=== PATIENT | female | born 1990 | race Caucasian/White ===

== ENCOUNTER 2017-02-09 15:54 | Emergency (ER) | payer OTHER ==
[~2017-02-09] VITALS: Ht 170.2 cm; Wt 81.8 kg
[2017-02-09 16:02] VITALS: BP 124/86; PULSE 90; RESP 21; O2SAT 90
[2017-02-09] MEDS ORDERED: Albuterol 2.5 mg/3 mL Inhalation Solution NEB ONE (16:05)
[2017-02-09] MEDS ORDERED: Albuterol-Ipratropium 3 mL Inhalation Solution NEB ONE (16:05)
[2017-02-09 16:13] VITALS: PULSE 94; RESP 20; O2SAT 92
--- NOTE | 2017-02-09 16:18 | ED.REPORT ---
HPI-Dyspnea / Wheezing Date of Service February 09, 2017 ED Provider: Dr. Elton Park MD Patient is a 24 year old female with a history of asthma, environmental allergies and PCOS who presents to the ED complaining of SOB that began 4 days ago. Associated symptoms include "watery" eyes and nasal congestion. She has also been experiencing diarrhea for the past 10 days that has since resolved. Patient has been seen by her PCP but her symptoms have persisted. She was prescribed prednisone but was unable to fill the prescription yesterday. Patient has had several previous admission for asthma attacks but denies any intubations. She has been using her nebulizer 2 times per day for the past few months and also uses an albuterol inhaler daily. She denies fever. Patient is a former smoker. Last menstrual periods was 4 days ago. Nursing Notes Stated Complaint: ASTHMA ATTACK Chief Complaint: Respiratory Distress Nursing Notes Reviewed: Yes Allergies: Coded Allergies: Sulfa (Sulfonamide Antibiotics) (Verified Allergy, Unknown, 06/10/15) Uncoded Allergies: SULFA (Allergy, Unknown, 06/10/15) General Time Seen by MD: 16:17 Chief Complaint Shortness of breath Hx Obtained From: Patient Arrived By: Walk-in Sudden in Onset?: No Onset Occurred: 4 days ago Symptom Duration: Since onset Location: : None Associated with: Reports: Nasal congestion, Denies: Fever Pertinent Negative: Pt denies other symptoms Recent Healthcare: No recent hospitalization, Recent doctor visit Past Medical History Past Medical History Notes: PCP: Dr. Vidhi Johnson MD Past Medical History 1. Asthma - Prior admission/No previous intubations 2. Environmental Allergies 3. PCOS Past Surgical History None reported Family History noncontributory Smoking History Former Smoker Social History Other Social History: Good social support, Local resident Ambulatory Status Independent Review of Systems Constitutional: Denies: Chills, Fever Ears / Nose / Throat: Reports: Nasal congestion Respiratory: Reports: Shortness of breath Complete sys rev & neg: except as marked. Eyes: Reports: Discharge bilateral ("watery eyes" ) GI: Reports: Diarrhea Physical Exam Initial Vital Signs Vital Signs (First) Date Time Temp Pulse Resp B/P Pulse Ox O2 Delivery O2 Flow Rate FiO2 02/09/17 16:02 37.1 90 21 124/86 90 Nasal Cannula 4 Initial VS: Reviewed Head / Eyes: Atraumatic, Normocephalic, PERRL Extremities: Vascular intact, Neuro intact, No swelling, No tenderness Skin: Warm, Dry, No cyanosis Neurologic: Alert, Oriented, Nonfocal Psychiatric: Mood/affect normal, Behavior normal, Normal thought content General/Constitutional: Awake, Alert, No acute distress Neck: Atraumatic, Supple, Full range of motion Respiratory / Chest: Atraumatic, No respiratory distress Wheezing / Retractions: Positive: Wheezing moderate (Coarse wheezes throughout) Cardiovascular: Heart rate NL, Regular rhythm, Heart sounds NL, No gallop, No murmurs, No rubs Abdomen: Atraumatic, Soft Interpretation & Diagnostics Lab Results Interpretation Result Diagram: 02/09/17 1648 02/09/17 1648 Test 02/09/17 16:48 02/09/17 17:07 White Blood Count 7.9th/mm3 (3.8-10.1) Red Blood Count 5.38mil/mm3 (3.90-5.20) Hemoglobin 16.1g/dL (12.0-15.6) Hematocrit 47.5% (35.0-46.0) Mean Corpuscular Volume 88.3fL (81-100) Mean Corpuscular Hemoglobin 29.9pg (27.0-35.0) Mean Corpuscular Hemoglobin Concent 33.9% (32.0-37.0) Red Cell Distribution Width 12.7% (12.3-15.4) Platelet Count 191bil/L (150-400) Neutrophils (%) (Auto) 67.4% (40-74) Lymphocytes (%) (Auto) 18.9% (14-46) Monocytes (%) (Auto) 5.2% (4-12) Eosinophils (%) (Auto) 7.7% (0-5) Basophils (%) (Auto) 0.5% (0-3) Sodium Level 138mEq/L (134-144) Potassium Level 3.6mEq/L (3.5-5.2) Chloride Level 102mEq/L (97-108) Carbon Dioxide Level 20mmol/L (18-29) Blood Urea Nitrogen 12mg/dL (6-20) Creatinine 0.81mg/dL (0.57-1.00) Estimat Glomerular Filtration Rate 121mL/min (>59) Glucose Level 116mg/dL (60-99) Calcium Level 9.4mg/dL (8.5-10.1) Total Bilirubin 0.4mg/dL (0.0-1.2) Aspartate Amino Transf (AST/SGOT) 15U/L (0-50) Alanine Aminotransferase (ALT/SGPT) 12U/L (0-32) Alkaline Phosphatase 101U/L (25-150) Troponin T < 0.010ug/L (0.0-0.011) Pro-B-Type Natriuretic Peptide 19.50pg/mL (0-130) Total Protein 7.5g/dL (6.4-8.4) Albumin 3.8g/dL (3.4-5.0) Hold Maier Top Tube Received (Received) Urine Color Yellow (YELLOW) Urine Appearance Clear (CLEAR,HAZY) Urine pH 5.5 (5.0-8.0) Urine Specific [place] 1.030 (1.003-1.035) Urine Protein Tracemg/dL (NEG,TRACE) Urine Glucose (UA) Negativemg/dL (NEGATIVE) Urine Ketones Tracemg/dL (NEGATIVE) Urine Occult Blood Trace (NEGATIVE) Urine Nitrite Negative (NEGATIVE) Urine Bilirubin Negative (NEGATIVE) Urine Urobilinogen 1.0mg/dL (NORMAL) Urine Leukocyte Esterase Negative (NEGATIVE) Urine RBC 0-2/hpf (0-2) Urine WBC 0-5/hpf (0-5) Urine Epithelial Cells None/hpf (NONE-MOD) Urine Crystals None seen (NONE SEEN) Urine Bacteria Few/hpf (NONE-FEW) Urine Hyaline Casts None/lpf (NONE) Urine Granular Casts None seen (NONE SEEN) Urine Waxy Casts None seen (NONE SEEN) Urine Red Blood Cell Casts None seen (NONE SEEN) Urine White Blood Cell Casts None seen (NONE SEEN) Urine Mucus None seen (None Seen) Urine Trichomonas None seen (NONE SEEN) Urine Yeast None (NONE SEEN) Urinalysis Comment None Urine Culture Reflexed Not indicated ECG Interpretation ECG Interpretation: Sinus Rhythm Rate [address] changes Time: 16:37 Interpreted by: ED physician Abnormal T wave or ST segment: Non-specific ST changes X-Ray Chest Interpretation Chest Xray Interpretation: IMPRESSION: No acute pulmonary process. Dictated by: Deyanira Zelaya M.D. on 02/09/2017 at 16:43 Interpretation / Wet Read by: Interpret - Radiologist Re-Eval/Medical Decision Re-Evaluation/Progress : Time of Eval: 19:46 Treatment Summary: Albuterol nebulizer x 2 Patient Status: Condition improved Re-Evaluation/Progress Note: Wheezes still present but symptoms have All of the patient's questions about her diagnosis and treatment plan are addressed. She understands and agrees with the treatment plan. Counseled Regarding: Diagnosis, Lab results, Need for follow-up, When/why to return to ED Discharge & Departure Impression: Primary Impression: Asthma exacerbation Disposition: Home Discharge Condition All VS Reviewed: Yes Condition: Improved Patient Instructions: Asthma (ED) Additional Instructions: Thank you for trusting us with your care this afternoon. Your emergency department evaluation today included interview, examination, lab work, EKG and chest X-ray. Your results are reassuring that there is no immediate cause for concern at this time and your symptoms are likely due to your asthma. Please take your prednisone as directed starting tomorrow. Continue with home inhaler as needed Schedule a follow up appointment with your primary care physician in the next week for a recheck. Please return to the emergency department if you develop any new or worsening symptoms including any difficulty breathing, fevers, chills or headaches. Referrals: Vidhi Johnson ND (PCP) Scribe Attestation Portions of this note were transcribed by Deb Bocanegra. I, Dr. Park personally performed the history, physical exam and medical decision-making; I reviewed and confirmed the accuracy of the information in the transcribed note. Signed by: Miya Colon, 02/09/17 1700. copies to: Vidhi Johnson ND, Donald L MD February 09, 2017 16:18 DEB BOCANEGRA February 09, 2017 16:21
[2017-02-09] MEDS ORDERED: predniSONE 20 mg Tablet PO ONE (16:35)
--- NOTE | 2017-02-09 16:45 | DRSVH ---
PROCEDURE: X-RAY CHEST ONE VIEW, PORTABLE ([id number]) INDICATIONS: asthma, Short of Breath TECHNIQUE: One view of the chest was acquired. COMPARISON: [facility], [place], XR CHEST 2VW, 12/23/2016, 15:08. FINDINGS: Surgical changes and devices: None. Lungs and pleura: No pleural effusions or pneumothorax. Lungs are clear. Mediastinum: Mediastinal contours appear normal. Heart size is normal. Bones and chest wall: No suspicious bony lesions. Overlying soft tissues appear unremarkable. IMPRESSION: No acute pulmonary process. Dictated by: Deyanira Zelaya M.D. on 02/09/2017 at 16:43 Approved by: Deyanira Zelaya M.D. on 02/09/2017 at 16:44
[2017-02-09 17:02] LABS: BASOPHILS % (AUTO) 0.5 % (0-3); EOSINOPHILS % (AUTO) 7.7 % (0-5); MONOCYTES % (AUTO) 5.2 % (4-12); Mean Corpuscular Hemoglobin 29.9 pg (27.0-35.0); Mean Corpuscular Volume 88.3 fL (81-100); NEUTROPHILS % (AUTO) 67.4 % (40-74); Platelet Count 191 bil/L (150-400)
[2017-02-09] MEDS ORDERED: 0.9% Sodium Chloride 1,000 ML IV ONE (17:20)
[2017-02-09 17:39] LABS: APPEARANCE,URINE CLEAR (CLEAR,HAZY); COLOR,URINE YELLOW (YELLOW); PH,URINE 5.5 (5.0-8.0)
[2017-02-09 17:40] LABS: OCCULT BLOOD,URINE TRACE (NEGATIVE)
[2017-02-09 17:42] LABS: TROPONIN T < 0.010 ug/L (0.0-0.011)
[2017-02-09 18:00] VITALS: BP 119/72; PULSE 73; RESP 21; O2SAT 96
[2017-02-09 19:21] VITALS: BP 119/66; PULSE 92; RESP 24; O2SAT 94
[2017-02-09 19:58] VITALS: BP 127/66; PULSE 84; RESP 21; O2SAT 93
== END 2017-02-09 19:59 | disposition home or self-care (01) ==
LOC: SED 15:54
DX: J45.901 Unspecified asthma with (acute) exacerbation (principal); R19.7 Diarrhea, unspecified; Z87.09 Personal history of other diseases of the respiratory system; Z87.891 Personal history of nicotine dependence; Z88.2 Allergy status to sulfonamides
CPT/HCPCS: 36415; 71010; 80053; 81000; 81025; 83880; 84484; 85025; 93005; 94640; 94664; 96360; 99285; J7030; J7613; J7620

== ENCOUNTER 2017-03-05 00:49 | Emergency (ER) | payer OTHER ==
[~2017-03-05] VITALS: Ht 170.2 cm; Wt 95.0 kg
[2017-03-05 01:05] VITALS: BP 134/70; PULSE 80; RESP 14; O2SAT 96
[2017-03-05] MEDS ORDERED: 0.9% Sodium Chloride 1,000 ML IV ONE (01:08)
--- NOTE | 2017-03-05 01:08 | ED.REPORT ---
HPI-Seizure Date of Service Mar 05, 2017 ED Provider: Edvin Leija MD Pt is a 26 year old female with a hx of asthma and depression presenting to the ED via EMS after a seizure just prior to arrival. Associated symptoms include nausea, vomiting, and tongue pain. The pt's awoke to her having a seizure which he witnessed for 30 seconds. The pt then became confused and didn' t believe that she had a seizure so she resisted going with the paramedics. Pt was given 300 of Ketamine by medics and arrives sedated. She denies any hx of seizures in the past. About 1 month ago, the pt had an episode of memory loss when she didn't remember that she had just made coffee, and that her daughter had gotten her teeth removed the day before. About an hour later, the pt's memory returned. She had a negative neuro workup following the episode. Denies any recent hx of trauma or any other symptoms at this time. Nursing Notes Stated Complaint: SEIZURE/BIZARRE BEHAVIOR Chief Complaint: Seizure Nursing Notes Reviewed: Yes Allergies: Coded Allergies: Sulfa (Sulfonamide Antibiotics) (Verified Allergy, Unknown, 06/10/15) Uncoded Allergies: SULFA (Allergy, Unknown, 06/10/15) General Time Seen by Provider: 01:00 Chief Complaint Chief Complaint: Seizure, generalized Hx Obtained From: Patient, Spouse, EMS Arrived By: Ambulance Onset Occurred: Just prior to arrival Symptom Duration: Since onset Severity: Current: No pain currently Severity: Maximum: No pain Recent Healthcare: No recent doctor visit, No recent hospitalization Similar Sx Previous: No Past Medical History Past Medical History Notes: PCP: Dr. Vidhi Johnson MD Past Medical History 1. Asthma - Prior admission/No previous intubations 2. Environmental Allergies 3. PCOS Past Surgical History None reported Family History noncontributory Smoking History Former Smoker Social History Alcohol Use: Denies alcohol use Drug Use: THC Other Social History: Good social support, Local resident Ambulatory Status Independent Review of Systems Constitutional: Denies: Weakness - generalized Ears / Nose / Throat: Reports: Tongue pain Neurologic: Reports: Confusion, Seizure, Shaking Complete sys rev & neg: except as marked. GI: Reports: Nausea, Vomiting Physical Exam Initial Vital Signs Vital Signs (First) Date Time Temp Pulse Resp B/P Pulse Ox O2 Delivery O2 Flow Rate FiO2 03/05/17 01:05 36.7 80 14 134/70 96 Nasal Cannula 2 Initial VS: Reviewed, Vital signs normal Head / Eyes: Atraumatic, Normocephalic, PERRL Abdomen / GI: Soft, Non-tender, No guarding, No rebound, No distention Extremities: Vascular intact, Neuro intact, No swelling, No tenderness Skin: Warm, Dry, No cyanosis Psychiatric: Mood/affect normal, Behavior normal, Normal thought content General/Constitutional: Awake, Alert, No acute distress, Well appearing Neck: Supple, No meningismus, Full range of motion Respiratory / Chest: Breath sounds NL, Breath sounds = bilat, No respiratory distress, No rales, No rhonchi, No wheezing Cardiovascular: Heart rate NL, Regular rhythm, Heart sounds NL, Peripheral circulation NL Neurologic: Oriented X3, Speech NL, No motor deficits, No sensory deficits, CN II - XII intact, Reflexes equal bilat, Cerebellar NL ENT: Atraumatic, Airway patent, Mucous membranes moist Multiple bruises and abrasions on right side of tongue Interpretation & Diagnostics Interpretation & Diagnostics: URINE TOX POSITIVE FOR MARIJUANA ONLY Lab Results Interpretation Result Diagram: 03/05/17 0120 03/05/17 0120 Test 03/05/17 01:20 03/05/17 02:45 White Blood Count 9.4th/mm3 (3.8-10.1) Red Blood Count 5.44mil/mm3 (3.90-5.20) Hemoglobin 16.2g/dL (12.0-15.6) Hematocrit 48.5% (35.0-46.0) Mean Corpuscular Volume 89.2fL (81-100) Mean Corpuscular Hemoglobin 29.8pg (27.0-35.0) Mean Corpuscular Hemoglobin Concent 33.4% (32.0-37.0) Red Cell Distribution Width 13.0% (12.3-15.4) Platelet Count 200bil/L (150-400) Neutrophils (%) (Auto) 80.1% (40-74) Lymphocytes (%) (Auto) 11.3% (14-46) Monocytes (%) (Auto) 4.3% (4-12) Eosinophils (%) (Auto) 3.9% (0-5) Basophils (%) (Auto) 0.1% (0-3) Sodium Level 139mEq/L (134-144) Potassium Level 4.4mEq/L (3.5-5.2) Chloride Level 103mEq/L (97-108) Carbon Dioxide Level 21mmol/L (18-29) Blood Urea Nitrogen 14mg/dL (6-20) Creatinine 0.71mg/dL (0.57-1.00) Estimat Glomerular Filtration Rate 140mL/min (>59) Glucose Level 106mg/dL (60-99) Calcium Level 9.3mg/dL (8.5-10.1) Magnesium Level 2.0mg/dL (1.6-2.6) Total Bilirubin 0.2mg/dL (0.0-1.2) Aspartate Amino Transf (AST/SGOT) 17U/L (0-50) Alanine Aminotransferase (ALT/SGPT) 13U/L (0-32) Alkaline Phosphatase 88U/L (25-150) Total Protein 7.5g/dL (6.4-8.4) Albumin 4.3g/dL (3.4-5.0) Hold Maier Top Tube Received (Received) Alcohols < 10mg/dL (0-10) Urine Color Yellow (YELLOW) Urine Appearance Hazy (CLEAR,HAZY) Urine pH 6.0 (5.0-8.0) Urine Specific [place] 1.018 (1.003-1.035) Urine Protein Negativemg/dL (NEG,TRACE) Urine Glucose (UA) Negativemg/dL (NEGATIVE) Urine Ketones Negativemg/dL (NEGATIVE) Urine Occult Blood Large (NEGATIVE) Urine Nitrite Negative (NEGATIVE) Urine Bilirubin Negative (NEGATIVE) Urine Urobilinogen Normalmg/dL (NORMAL) Urine Leukocyte Esterase Negative (NEGATIVE) Urine RBC 0-2/hpf (0-2) Urine WBC 0-5/hpf (0-5) Urine Epithelial Cells Moderate/hpf (NONE-MOD) Urine Crystals None seen (NONE SEEN) Urine Bacteria Few/hpf (NONE-FEW) Urine Hyaline Casts None/lpf (NONE) Urine Granular Casts None seen (NONE SEEN) Urine Waxy Casts None seen (NONE SEEN) Urine Red Blood Cell Casts None seen (NONE SEEN) Urine White Blood Cell Casts None seen (NONE SEEN) Urine Mucus Present (None Seen) Urine Trichomonas None seen (NONE SEEN) Urine Yeast None (NONE SEEN) Urine Culture Reflexed Not indicated Lab values outside NL range: no clinical significance. ECG Interpretation Time: 01:12 Interpreted by: ED physician Normal ECG Interpretation: Normal ECG w/ rate of... (88), Normal sinus rhythm CT Head Interpretation CONCLUSION: Study is somewhat limited as the inferior aspect of the posterior fossa not included in the [id number]. Otherwise normal head CT. This report was transmitted to the emergency room at 03/05/2017 - 1:35:10 AM PDT. Study: Head CT no contrast Interpretation / Wet Read by: Interpret - Radiologist Re-Eval/Medical Decision Med Decision/Clinical Course 26-year-old female with new onset grand mal seizure. Her only physical exam finding was bruising and abrasions from biting her tongue. CT scan of the head was normal. Laboratory evaluation was normal. She cleared completely and had a normal neurologic examination. She was informed that she could not drive or operate machinery or care for small children until this was further evaluated. She will follow-up with her primary doctor for MRI, EEG, and neurological consultation. She will return to the emergency room DMITRY if she has another seizure and would likely be started on Keppra at that time. Re-Evaluation/Progress #1: Time of Eval: 01:36 )( Re-Eval Neurologic Exam: Alert Re-Evaluation/Progress Note: Pt now awake, alert and conversive. Able to communicate. Re-Evaluation/Progress #2: Time of Eval: 02:09 Patient Status: Condition improved Re-Evaluation/Progress Note: Pt reports tongue pain and nausea. Re-Evaluation/Progress #3: Time of Eval: 03:25 Patient Status: Condition improved Re-Evaluation/Progress Note: Discussed CT and lab results. Pt understands and agrees with plan. Counseled Regarding: Diagnosis, Lab results, Need for follow-up, When/why to return to ED Discharge & Departure Impression: Primary Impression: New onset seizure Disposition: Home Discharge Condition All VS Reviewed: Yes Condition: Improved Patient Instructions: Generalized Tonic Clonic Seizures (ED) Additional Instructions: No dangerous cause for your seizure today was identified. You will need to follow up with your primary care doctor, for further evaluation to possibly include MRI, EEG, and a neurology consult. Do not drive or take care of your children alone until approved by your primary doctor. Referrals: Vidhi Johnson ND (PCP) Scribe Attestation Portions of this note were transcribed by Venita Soto. I, Dr. Leija personally performed the history, physical exam and medical decision-making; I reviewed and confirmed the accuracy of the information in the transcribed note. Signed by: Miya Sims, 03/05/17 and 0342. copies to: Vidhi Johnson ND, Howard L MD Mar 05, 2017 01:08 VENITA SOTO Mar 05, 2017 01:40
[2017-03-05 01:33] LABS: BASOPHILS % (AUTO) 0.1 % (0-3); EOSINOPHILS % (AUTO) 3.9 % (0-5); MONOCYTES % (AUTO) 4.3 % (4-12); Mean Corpuscular Hemoglobin 29.8 pg (27.0-35.0); Mean Corpuscular Volume 89.2 fL (81-100); NEUTROPHILS % (AUTO) 80.1 % (40-74); Platelet Count 200 bil/L (150-400)
[2017-03-05] MEDS ORDERED: Ondansetron 2 mg/mL 2 mL Inj ONE (02:08)
[2017-03-05 02:41] VITALS: BP 127/75; PULSE 75; RESP 18; O2SAT 99
[2017-03-05 03:15] LABS: APPEARANCE,URINE HAZY (CLEAR,HAZY); COLOR,URINE YELLOW (YELLOW)
[2017-03-05 03:16] LABS: OCCULT BLOOD,URINE LARGE (NEGATIVE); UROBILINOGEN,URINE NORMAL (NORMAL)
[2017-03-05 03:48] VITALS: BP 112/72; PULSE 78; RESP 16; O2SAT 99
--- NOTE | 2017-03-05 07:11 | DRSVH ---
PROCEDURE: CT BRAIN WITHOUT CONTRAST ([id number]) INDICATIONS: prolonged seizure TECHNIQUE: Noncontrast 4.5 mm thick angled axial sections acquired from the foramen magnum to the vertex, with c oronal reformats. COMPARISON: [facility], CT, CT ABD PELVIS W CON, 06/10/2015, 21:39. FINDINGS: Image quality: Excellent. CSF spaces: Basal cisterns are patent. No extra-axial fluid collections. Ventricles are normal in size and shape. Basilar cisterns are not included on the study and cannot be evaluated. Brain: No midline shift. No intracranial masses or hemorrhage. Cano-white matter interface is norm al. Inferior cerebellum is not included on the study and cannot be evaluated. Skull and face: Calvarium and visualized facial bones are intact, without suspicious lesions. Skull base is not included on the study and cannot be evaluated. Sinuses: Visualized sinuses and mastoids are clear. IMPRESSION: 1. The cerebellum and skull base are not included on the study and cannot be evaluated. If there is c oncern for pathology at this site a repeat study would be needed. 2. The visualized brain parenchyma there is no CT evidence of acute abnormality. 3. There are no discrepancies with the preliminary report. Dictated by: Tj Galvez M.D. on 03/05/2017 at 6:58 Approved by: Tj Galvez M.D. on 03/05/2017 at 7:03
[2017-03-05] MEDS ORDERED: ALBU18HF INH (08:22)
[2017-03-05] MEDS ORDERED: FLUO20CA25 PO (08:22)
[2017-03-05] MEDS ORDERED: BECL8.7A6 INHALATION (08:22)
[2017-03-05] MEDS ORDERED: [UNRECOGNIZED DRUG - CODE] PO (14:53)
== END 2017-03-05 03:49 | disposition home or self-care (01) ==
LOC: SED 00:49 → EDBD 00:49 → SED 03:49
DX: R56.9 Unspecified convulsions (principal); R11.2 Nausea with vomiting, unspecified; J45.909 Unspecified asthma, uncomplicated; F32.9 Major depressive disorder, single episode, unspecified; Z87.891 Personal history of nicotine dependence; Z88.2 Allergy status to sulfonamides
CPT/HCPCS: 36415; 70450; 80053; 81000; 81025; 82948; 83735; 85025; 93005; 96361; 96374; 99285; G0480; J2405; J7030

== ENCOUNTER 2017-03-05 08:10 | Emergency (ER) | payer OTHER ==
[~2017-03-05] VITALS: Ht 170.2 cm; Wt 86.4 kg
[2017-03-05 08:13] VITALS: BP 110/79; PULSE 77; RESP 14; O2SAT 96
[2017-03-05] MEDS ORDERED: ALBU18HF INH (08:22)
[2017-03-05] MEDS ORDERED: BECL8.7A6 INHALATION (08:22)
[2017-03-05] MEDS ORDERED: FLUO20CA25 PO (08:22)
[2017-03-05] MEDS ORDERED: levETIRAcetam Inj 1,500 MG in Dextrose 5% 100 ML IV ONE (08:45)
[2017-03-05] MEDS ORDERED: Albuterol 2.5 mg/3 mL Inhalation Solution NEB ONE (08:55)
--- NOTE | 2017-03-05 08:59 | ED.REPORT ---
HPI-Seizure Date of Service Mar 05, 2017 ED Provider: Amelia Schaefer MD The pt is a 26 y/o female w/ a hx of asthma and depression presenting to the ED due to a seizure at 0700 this morning. She originally came into the ED at 0300 earlier this morning via EMS due to a first time seizure and was told to return if she had another one. During the first seizure the pt's fiance reports her shaking, clenching, being unresponsive, and sounding like "demons were coming out of her mouth". She also bit her tongue. The second seizure did not last as long and the fiance was able to take the pt to the ED himself. The pt does not remember what happened during the seizures and is also experiencing a headache, nausea, and vomiting. Her headache began before she went to bed last night and is primarily on her R side. Her drug and blood screens were both negative. She takes two capsules of Fluoxetine HCL 20 mg daily for her depression. Nursing Notes Stated Complaint: SEIZURES Chief Complaint: Seizure Nursing Notes Reviewed: Yes Allergies: Coded Allergies: Sulfa (Sulfonamide Antibiotics) (Verified Allergy, Unknown, 06/10/15) Scheduled Beclomethasone Dipropionate (Qvar) 8.7 Gm Aer.w.adap 1 PUFF INHALATION DAILY Fluoxetine (Fluoxetine) 20 Mg Capsule 20 MG PO DAILY Levetiracetam (Roweepra) 750 Mg Tablet 1,500 MG PO BID Scheduled PRN Albuterol Sulfate (Ventolin HFA Inhaler) 200 Puff/18 Gm Inhaler 1 PUFF INH Q4 PRN PRN For Wheezing General Time Seen by Provider: 08:53 Chief Complaint Chief Complaint: Seizure, generalized Hx Obtained From: Patient, Spouse Arrived By: Walk-in Onset Occurred: 1 - 4 hours ago Immunizations: All up to date Recent Healthcare: No recent hospitalization, Recent doctor visit Similar Sx Previous: Yes Past Medical History Past Medical History Notes: PCP: Dr. Vidhi Johnson MD Past Medical History 1. Asthma - Prior admission/No previous intubations 2. Environmental Allergies 3. PCOS 4. Depression Past Surgical History None reported Family History noncontributory Smoking History Former Smoker Social History Alcohol Use: Denies alcohol use Drug Use: THC Other Social History: Good social support, Local resident Ambulatory Status Independent Review of Systems Neurologic: Reports: Headache Complete sys rev & neg: except as marked. GI: Reports: Nausea, Vomiting Physical Exam Initial Vital Signs Vital Signs (First) Date Time Temp Pulse Resp B/P Pulse Ox O2 Delivery O2 Flow Rate FiO2 03/05/17 08:13 36.8 77 14 110/79 96 Room Air Initial VS: Reviewed General/Constitutional: Awake, Alert, Cooperative Postictal state Neck: Atraumatic, Supple, Full range of motion No nucal rigidity Respiratory / Chest: Breath sounds = bilat Wheezing / Retractions: Positive: Wheezing mild (Scattered ) Cardiovascular: Heart rate NL, Regular rhythm, Heart sounds NL Neurologic: Oriented X3, Speech NL Reflex Abnormality: Negative: Clonus present Hyperreflexive +4 in upper and lower extremities Postictal headache Head / Eyes: Normocephalic, PERRL ENT: Airway patent Mouth: Positive: Tongue abnormal (bitten during seizure ) Abdomen: Atraumatic, Soft, Non-tender Upper Extremity / MS: Inspection NL, Full range of motion, No deformity Lower Extremity / Pelvis / MS: Inspection NL, Full range of motion, No deformity Skin: No rash, Warm, Dry Interpretation & Diagnostics PROCEDURE: MRI SEIZURE BRAIN WITH AND WITHOUT CONTRAST IMPRESSION: 1. No MR findings to explain the patient's seizure are identified. 2. No acute intracranial hemorrhage or ischemia. 3. No parenchymal abnormalities or abnormal enhancement within the brain. Dictated by: Itz Sorto M.D. on 03/05/2017 at 13:35 Approved by: Itz Sorto M.D. on 03/05/2017 at 13:38 Lab Results Interpretation Test 03/05/17 08:40 Hold Purple Top Tube Received (Received) Hold Blue Top Tube Received (Received) Hold Red Top Tube Received (Received) Hold [place] Top Tube Received (Received) Lab Results Interpretation: IMPRESSION: 1. No MR findings to explain the patient's seizure are identified. 2. No acute intracranial hemorrhage or ischemia. 3. No parenchymal abnormalities or abnormal enhancement within the brain. Dictated by: Itz Sorto M.D. on 03/05/2017 at 13:[address] from earlier ED visit at 0300 IMPRESSION: 1. The cerebellum and skull base are not included on the study and cannot be evaluated. If there is concern for pathology at this site a repeat study would be needed. 2. The visualized brain parenchyma there is no CT evidence of acute abnormality. 3. There are no discrepancies with the preliminary report. Dictated by: Tj Galvez M.D. on 03/05/2017 at 6:58 Approved by: Tj Galvez M.D. on 03/05/2017 at 7:03 Study: Head CT no contrast Interpretation / Wet Read by: Interpret - Radiologist Re-Eval/Medical Decision Med Decision/Clinical Course 26-year-old woman with no drug use history nor previous seizures has now had 2 grand mal seizures in a 12 hour period. Seen last night for the first 24 Without medications started was done and was unremarkable. Returns within 3 hours after having a second grand mal seizure. At this point she is loaded with 1500 mg of Keppra IV. Consultation with [facility] neurology suggests brain MR with and without and continuing Keppra continuing this dose twice a day. She has an appointment with Dr. webster on March 18 at 1:30 we have arranged an EEG prior to that. Should she have any additional seizures recommendation from the [facility] neurologist was to be admitted with EKG monitoring which would mean transferring her to [facility] for such Source of Hx: Old records Re-Evaluation/Progress #1: Time of Eval: 10:26 Re-Evaluation/Progress Note: Rechecked pt. Discussed plan for MRI. Re-Evaluation/Progress #2: Time of Eval: 14:28 Re-Evaluation/Progress Note: Pt rechecked. Discussed MRI results. Informed pt of plan for treatment. Pt understands and agreeswith plan for treatment. F/U instructions and RTER warnings given. All questions addressed. Consultation : Referral / Consult Name: Desmond Pablo MD Consulted With: Neurology Call Returned at: 09:52 Note: Discussed pt's case. Recommends brain MRI and to send pt home w/ Keppra and to follow up w/ neurology and an EEG. If she has another seizure he recommends admission. Counseled Regarding: Diagnosis, Lab results, Need for follow-up, When/why to return to ED Discharge & Departure Impression: Primary Impression: New onset seizure Disposition: Home Discharge Condition All VS Reviewed: Yes Condition: Stable Additional Instructions: This has been a very frightening experience for you. Her tongue is going to be sore and swollen and your muscles are going to hurt everywhere for the next couple of days. It is okay to use ibuprofen for the muscle aches. Your lab work, brain CT, brain MRI were all very reassuring. I am not finding any mechanical reasons to explain your seizures. After your second seizure, you got 1500 mg of IV Keppra and need to continue this twice a day by mouth. This prescription has been electrically transmitted to [facility] for you today You have an appointment with Dr. Webster one of our neurologists on March 18. You need to arrive at 1:15 for a 1:30 appointment You will have an EEG done prior to or at that appointment so that Dr. webster has all of the information that he will need to give you the best advice and care. If you have not heard from his office prior to the appointment, then it will be done the same day as the appointment If you do have another seizure within the next 48 hours, you will need to return to the emergency room and the expectation will be admission to the neurology unit that can do continuous EEG monitoring (for example, [facility]) I hope you feel better soon. Referrals: Vidhi Johnson ND (PCP) Scribe Attestation Portions of this note were transcribed by Hugh Miller. I, Dr. Schaefer personally performed the history, physical exam and medical decision-making; I reviewed and confirmed the accuracy of the information in the transcribed note. Signed by : Miya Montelongo, 03/05/17 and 912. copies to: Vidhi Johnson ND; Theo Webster MD, Shawna L MD Mar 05, 2017 08:59 Hugh Miller Mar 05, 2017 09:09
[2017-03-05 09:12] VITALS: PULSE 83; RESP 20; O2SAT 96
[2017-03-05 10:11] VITALS: BP 109/69; PULSE 87; RESP 14; O2SAT 93
[2017-03-05 13:13] VITALS: BP 114/67; PULSE 102; RESP 14; O2SAT 98
--- NOTE | 2017-03-05 13:40 | DRSVH ---
PROCEDURE: MRI SEIZURE BRAIN WITH AND WITHOUT CONTRAST ([id number]) INDICATIONS: new seizure TECHNIQUE: Noncontrast axial T1 spin echo, axial T2 fast spin echo, sagittal and axial FLAIR, axial gradient ech o, axial diffusion and ADC, coronal thin-slice T2 FSE through the brain. Optional contrast, followed by axial and coronal 3D VIBE or T1 spin echo with fat saturation sequences through the brain. COMPARISON: [facility], CT, CT BRAIN WO CON, 03/05/2017, 1:29. FINDINGS: Image quality: Diagnostic. Brain: There is no acute intra-axial or extra-axial hemorrhage. No extra-axial fluid collection is i dentified. There is no midline shift or mass effect. The orbits are grossly unremarkable. No focal parenchymal abnormalities or masses are identified. There is no parenchymal edema. No rest ricted diffusion is present. The midline intracranial structures are within normal limits. The papa r expected intracranial flow voids are visualized and unremarkable. No abnormal enhancement is present on the postcontrast images. No enhancing lesions are identified. The ventricles and cortical sulci are age-appropriate. Bones: The imaged osseous structures are grossly intact. No suspicious osseous lesions are identifie d. The included paranasal sinuses and mastoid air cells are clear. Extracranial soft tissues: The imaged overlying soft tissues of the face and head are grossly unremar kable. IMPRESSION: 1. No MR findings to explain the patient's seizure are identified. 2. No acute intracranial hemorrhage or ischemia. 3. No parenchymal abnormalities or abnormal enhancement within the brain. Dictated by: Itz Sorto M.D. on 03/05/2017 at 13:35 Approved by: Itz Sorto M.D. on 03/05/2017 at 13:38
[2017-03-05] MEDS ORDERED: [UNRECOGNIZED DRUG - CODE] PO (14:53)
[2017-03-05 15:13] VITALS: BP 112/72; PULSE 100; RESP 14; O2SAT 98
== END 2017-03-05 15:26 | disposition home or self-care (01) ==
LOC: SED 08:10
DX: R56.9 Unspecified convulsions (principal); F32.9 Major depressive disorder, single episode, unspecified; R06.2 Wheezing; J45.909 Unspecified asthma, uncomplicated; F12.10 Cannabis abuse, uncomplicated; Z79.51 Long term (current) use of inhaled steroids; Z87.891 Personal history of nicotine dependence; Z88.2 Allergy status to sulfonamides
CPT/HCPCS: 70553; 94664; 96365; 96375; 99285; A9585; J1885; J1953; J7613

== ENCOUNTER 2017-04-21 01:45 | Emergency (ER) | payer OTHER ==
[~2017-04-21] VITALS: Ht 170.2 cm; Wt 95.3 kg
[~2017-04-21 01:45] MED LIST: ALBU18HF INH; BECL8.7A6 INHALATION; FLUO20CA25 PO; [UNRECOGNIZED DRUG - CODE] PO
[2017-04-21 01:48] VITALS: BP 122/82; PULSE 79; RESP 24; O2SAT 95
[2017-04-21 02:00] VITALS: PULSE 82; RESP 16
--- NOTE | 2017-04-21 02:02 | ED.REPORT ---
HPI-General Illness Date of Service Apr 21, 2017 ED Provider: Edvin Leija MD Pt is a 26 y/o female w/ a hx of seizure disorder on Keppra, asthma, presenting to the ED with her fiance due to possible seizure as well as shortness of breath. The patient woke up on the floor tonight and is now experiencing perispinal shooting back pain, shortness of breath, and wheezing. She is unsure if she had a seizure or not, this presentation is not typical for her previous seizures. She states she is experiencing petite mal seizures about 3x a day despite being on 1,000 mg Keppra BID. The patient was seen on March 05, 2017 after her first seizure and MR brain was negative. She has been seeing a neurologist and is currently undergoing further workup. Nursing Notes Stated Complaint: ASTHMA, SEIZURES Chief Complaint: General Complaint Nursing Notes Reviewed: Yes Allergies: Coded Allergies: Sulfa (Sulfonamide Antibiotics) (Verified Allergy, Unknown, 06/10/15) Scheduled Beclomethasone Dipropionate (Qvar) 8.7 Gm Aer.w.adap 1 PUFF INHALATION DAILY Fluoxetine (Fluoxetine) 20 Mg Capsule 20 MG PO DAILY Levetiracetam (Roweepra) 750 Mg Tablet 1,500 MG PO BID Prednisone (PredniSONE) 20 Mg Tablet 20 MG PO TID Scheduled PRN Albuterol Sulfate (Ventolin HFA Inhaler) 200 Puff/18 Gm Inhaler 1 PUFF INH Q4 PRN PRN For Wheezing General Time Seen by MD: 02:01 Chief Complaint Multip medical complaints Hx Obtained From: Patient Arrived By: Walk-in Sudden in Onset?: Yes Onset Occurred: 1 - 4 hours ago Symptom Duration: Since onset Location: : Back Quality: Painful Severity: Current: Moderate Severity: Maximum: Moderate Recent Healthcare: Previous diagnosis, Prior workup Similar Sx Previous: Yes Past Medical History Past Medical History Notes: PCP: Dr. Vidhi Johnson MD Past Medical History 1. Asthma - Prior admission/No previous intubations 2. Environmental Allergies 3. PCOS 4. Depression 5. Seizure disorder - on Keppra Past Surgical History None reported Family History noncontributory Smoking History Former Smoker Social History Alcohol Use: Denies alcohol use Drug Use: THC Other Social History: Good social support, Local resident Ambulatory Status Independent Review of Systems Full Review of Systems Respiratory: Reports: Shortness of breath, Wheezing Musculoskeletal: Reports: Back pain Neurologic: Reports: Change LOC Complete sys rev & neg: except as marked. Physical Exam Vital Signs Vital Signs Date Time Temp Pulse Resp B/P Pulse Ox O2 Delivery O2 Flow Rate FiO2 04/21/17 05:42 36.9 91 18 126/65 99 Room Air 04/21/17 03:49 73 16 123/74 94 Room Air 04/21/17 02:39 78 16 96 NEBULIZER 8 04/21/17 02:00 82 16 04/21/17 01:48 37.2 79 24 122/82 95 Room Air Initial VS: Reviewed, Vital signs normal Head / Eyes: Atraumatic, Normocephalic, PERRL ENT: Mucous membranes moist, Conjunctiva normal, No scleral icterus Neck: Supple, Non-tender, Full range of motion Cardiovascular: Regular rate & rhythm, Heart sounds normal, Intact distal pulses Abdomen / GI: Soft, Non-tender Extremities: Vascular intact, Neuro intact, No swelling Skin: Warm, Dry, No cyanosis Psychiatric: Mood/affect normal, Behavior normal, Normal thought content General/Constitutional: Awake, Alert, No acute distress, Cooperative, Not toxic appearing Respiratory / Chest: No respiratory distress, No rales, No rhonchi, No retractions, No stridor Tight wheezing throughout all lung gr Inspiratory and expiratory wheezing Back: Full range of motion, No midline vertebral tend Tenderness about left perispinous musculature Neurologic: Oriented X3, Speech NL, No motor deficits, No sensory deficits, CN II - XII intact, Cerebellar NL, Memory NL Interpretation & Diagnostics Lab Results Interpretation Result Diagram: 04/21/17 0235 04/21/17 0235 Test 04/21/17 02:35 White Blood Count 6.2th/mm3 (3.8-10.1) Red Blood Count 5.31mil/mm3 (3.90-5.20) Hemoglobin 15.6g/dL (12.0-15.6) Hematocrit 46.2% (35.0-46.0) Mean Corpuscular Volume 87.0fL (81-100) Mean Corpuscular Hemoglobin 29.4pg (27.0-35.0) Mean Corpuscular Hemoglobin Concent 33.8% (32.0-37.0) Red Cell Distribution Width 13.2% (12.3-15.4) Platelet Count 174bil/L (150-400) Neutrophils (%) (Auto) 67.3% (40-74) Lymphocytes (%) (Auto) 20.5% (14-46) Monocytes (%) (Auto) 5.0% (4-12) Eosinophils (%) (Auto) 6.6% (0-5) Basophils (%) (Auto) 0.3% (0-3) Sodium Level 136mEq/L (134-144) Potassium Level 3.8mEq/L (3.5-5.2) Chloride Level 103mEq/L (97-108) Carbon Dioxide Level 20mmol/L (18-29) Blood Urea Nitrogen 10mg/dL (6-20) Creatinine 0.67mg/dL (0.57-1.00) Estimat Glomerular Filtration Rate 150mL/min (>59) Glucose Level 95mg/dL (60-99) Calcium Level 8.9mg/dL (8.5-10.1) Magnesium Level 1.9mg/dL (1.6-2.6) Total Bilirubin 0.3mg/dL (0.0-1.2) Aspartate Amino Transf (AST/SGOT) 18U/L (0-50) Alanine Aminotransferase (ALT/SGPT) 17U/L (0-32) Alkaline Phosphatase 71U/L (25-150) Total Protein 7.0g/dL (6.4-8.4) Albumin 4.0g/dL (3.4-5.0) Hold [place] Top Tube Received (Received) Re-Eval/Medical Decision Med Decision/Clinical Course 26-year-old female with an acute exacerbation of asthma. She has not recently been on any steroids. She was reluctant to take her nebulizer more frequently than twice a day. She responded nicely to multiple nebulizer treatments and steroids. She will be discharged home with prednisone and permission to use the inhaler and nebulizer more frequently. She also may have had a seizure. Keppra level was checked and is pending. She seems to have most of her seizures at night and they are often associated with respiratory distress. I recommended a sleep study which she will talk to her primary doctor about. Source of Hx: Old records Time of Eval: 05:20 Re-Evaluation/Progress Note: Pt rechecked. Breathing much improved. O2 sat 95% on RA. Informed pt of plan for discharge. Pt understands and agrees with plan for discharge. F/U instructions and RTER warnings given. All questions addressed. Counseled Regarding: Diagnosis, Lab results, Need for follow-up, When/why to return to ED Discharge & Departure Primary Impression: Asthma exacerbation Additional Impression: Seizure Disposition: Home Discharge Condition All VS Reviewed: Yes Condition: Improved Patient Instructions: Asthma (ED) Additional Instructions: Prednisone 20 mg by mouth 3 times a day, #15 prescribed. You may use your nebulizer much more frequently, as often as every 2 hours. Talk to your regular doctor about your Keppra level in 3 or 4 days and about getting a sleep study. Referrals: Vidhi Johnson ND (PCP) Scribe Attestation Portions of this note were transcribed by Alex Bell. I, Dr. Leija personally performed the history, physical exam and medical decision-making; I reviewed and confirmed the accuracy of the information in the transcribed note. copies to: Vidhi Johnson ND, Howard L MD Apr 21, 2017 02:02 ALEX BELL Apr 21, 2017 02:13
[2017-04-21] MEDS ORDERED: Albuterol-Ipratropium 3 mL Inhalation Solution ONE (02:04)
[2017-04-21] MEDS ORDERED: Albuterol 2.5 mg/3 mL Inhalation Solution NEB ONE ×3 (02:04→02:30)
[2017-04-21] MEDS ORDERED: 0.9% Sodium Chloride 1,000 ML IV ONE (02:15)
[2017-04-21] MEDS ORDERED: MethylprednisoLONE Sodium Succinate 62.5 mg/mL 2 mL Inj IVPUSH ONE (02:20)
[2017-04-21] MEDS ORDERED: Albuterol-Ipratropium 3 mL Inhalation Solution NEB ONE (02:20)
[2017-04-21 02:39] VITALS: PULSE 78; RESP 16; O2SAT 96
[2017-04-21 02:58] LABS: BASOPHILS % (AUTO) 0.3 % (0-3); EOSINOPHILS % (AUTO) 6.6 % (0-5); Mean Corpuscular Hemoglobin 29.4 pg (27.0-35.0); NEUTROPHILS % (AUTO) 67.3 % (40-74); Platelet Count 174 bil/L (150-400)
[2017-04-21 03:26] LABS: Magnesium 1.9 mg/dL (1.6-2.6)
[2017-04-21 03:49] VITALS: BP 123/74; PULSE 73; RESP 16; O2SAT 94
[2017-04-21] MEDS ORDERED: PRE20 PO (05:26)
[2017-04-21 05:42] VITALS: BP 126/65; PULSE 91; RESP 18; O2SAT 99
[2017-06-08] MEDS ORDERED: LAMO25TA PO (19:06)
== END 2017-04-21 05:43 | disposition home or self-care (01) ==
LOC: SED 01:45
DX: J45.901 Unspecified asthma with (acute) exacerbation (principal); G40.909 Epilepsy, unspecified, not intractable, without status epilepticus; F32.9 Major depressive disorder, single episode, unspecified; Z87.891 Personal history of nicotine dependence; Z88.2 Allergy status to sulfonamides
CPT/HCPCS: 36415; 80053; 80299; 83735; 85025; 94644; 96374; 99285; J2930; J7030; J7613; J7620